=== PATIENT | female | born 1980 | race African-American/Black ===

== ENCOUNTER 2017-05-25 13:31 | Emergency (ER) | payer MEDICAID ==
[~2017-05-25] VITALS: Ht 157.5 cm; Wt 75.0 kg
[2017-05-25] MEDS ORDERED: SODIUM CHLORIDE 0.9% 1,000 ML IV ONE (15:48)
[2017-05-25 16:13] LABS: BASOPHILS % 0.7 % (0.0-2.0); HEMATOCRIT. 36.8 % (36.0-48.0); HEMOGLOBIN. 12.4 g/dL (12.0-16.0); LYMPHOCYTES % 44.7 % (20.0-50.0); MEAN PLATELET VOLUME 7.8 fl (7.4-10.4); MONOCYTES % 5.5 % (2.0-8.0); NEUTROPHILS % 48.1 % (40.0-76.0); PLATELET 180 x1000/uL (130-400); RED BLOOD CELL COUNT 4.28 mill/uL (4.2-5.4); RED CELL DISTRIBUTION WIDTH 13.7 % (11.6-14.6)
[2017-05-25 16:19] LABS: CHLORIDE 109 mEq/L (98-107)
[2017-05-25 16:20] LABS: CARBON DIOXIDE 25 mEq/L (21-32)
[2017-05-25 16:30] LABS: HCG SCREEN NEGATIVE
[2017-05-25 17:18] LABS: CLARITY URINE CLEAR (CLEAR); COLOR URINE YELLOW (YELLOW); GLUCOSE URINE NEGATIVE (NEGATIVE); KETONES URINE NEGATIVE (NEGATIVE); LEUKOCYTE ESTERASE URINE 1+ (NEGATIVE); NITRITE URINE NEGATIVE (NEGATIVE); OCCULT BLOOD URINE NEGATIVE (NEGATIVE); PH URINE 6.5 (4.5-8.0); PROTEIN URINE NEGATIVE (NEGATIVE); SPECIFIC GRAVITY URINE 1.019 (1.005-1.030); UROBILINOGEN URINE 0.2 E.U./dL (0.2-1.0)
[2017-05-25 18:11] VITALS: BP 132/83
== END 2017-05-25 19:15 | disposition home or self-care (01) ==
LOC: ER 16:31
DX: R55 Syncope and collapse (principal); J45.909 Unspecified asthma, uncomplicated
CPT/HCPCS: 36415; 80048; 81001; 84703; 85025; 93005; 96360; 99285; J7030; 99406

== ENCOUNTER 2018-08-28 09:13 | Emergency (ER) | payer MEDICAID ==
[~2018-08-28] VITALS: Ht 160 cm; Wt 74.0 kg
[2018-08-28 09:45] VITALS: BP 120/85
[2018-08-28] MEDS ORDERED: SINGULAIR (09:45)
[2018-08-28] MEDS ORDERED: ALBUTEROL (09:45)
== END 2018-08-28 14:33 | disposition left against medical advice (07) ==
LOC: ER 09:13
DX: M79.604 Pain in right leg (principal); Z53.21 Procedure and treatment not carried out due to patient leaving prior to being seen by health care provider

== ENCOUNTER 2018-10-22 06:59 | Emergency (ER) | payer MEDICAID ==
[~2018-10-22] VITALS: Ht 157.5 cm; Wt 74.0 kg
[~2018-10-22 06:59] MED LIST: ALBUTEROL; SINGULAIR
[2018-10-22] MEDS ORDERED: IPRATROPIUM BROMIDE (0.02%) 0.5MG/2.5ML NEB HHN STA (09:19)
[2018-10-22] MEDS ORDERED: METHYLPREDNISOLONE SOD SUCC 125 MG/2 ML VIAL IV STA (09:19)
[2018-10-22] MEDS ORDERED: ALBUTEROL (0.083%) 2.5MG/3ML NEB HHN STA (09:19)
[2018-10-22] MEDS ORDERED: DEXAMETHASONE 4MG/ML 1ML VIAL IM ONE (10:15)
[2018-10-22 11:23] VITALS: BP 143/65
== END 2018-10-22 11:31 | disposition home or self-care (01) ==
LOC: ER 06:59
DX: J45.901 Unspecified asthma with (acute) exacerbation (principal)
CPT/HCPCS: 71045; 81025; 94644; 96372; 99285; J1100; J7611; J2930

== ENCOUNTER 2021-08-07 15:05 | Emergency (ER) | payer MEDICAID ==
[~2021-08-07] VITALS: Ht 157.5 cm; Wt 73.0 kg
[2021-08-07] MEDS ORDERED: NAPR-681 PO (16:16)
[2021-08-07] MEDS ORDERED: ALBU18HF2 IH (16:16)
[2021-08-07 16:33] VITALS: BP 127/85
== END 2021-08-07 16:34 | disposition home or self-care (01) ==
LOC: ER 15:05
DX: J06.9 Acute upper respiratory infection, unspecified (principal)
CPT/HCPCS: 99283